=== PATIENT | male | born 1965 | race African-American/Black ===

== ENCOUNTER → 2016-10-01 | Outpatient (CLI) | payer OTHER ==
--- NOTE | ~2016-10-01 | US115 ---
[facility] A Service of [facility] RADIOLOGY TEXT RESULTS PATIENT: ROWAN YBARRA LOCATION: [facility] : 61 UNIT #: [id number] AGE: [address]: Kiel Dumont MD SEX: M ORDER DR: [id number] [facility] [address] [place], [place] [address] [id number] O MR#: [id number] Acc #: [id number] NAME: ROWAN YBARRA : 1965 SEX: M STUDY DATE/TIME: 10/01/2016 14:45 UNIT: [facility] ROOM: STUDY DESCRIPTION: US Scrotum and Contents Attending Physician: Kiel Dumont M.D. Referring Physician: Kiel Dumont M.D. Ordering Physician: Kiel Dumont M.D. Primary Care Physician: Manuel Simon M.D. MEDICAL IMAGING REPORT This report is preliminary unless electronic signature is present EXAM Testicular ultrasound with color flow Doppler 10/01/2016 HISTORY Right testicular pain for 7 months. No known injury. FINDINGS Prescott-scale images of the scrotum were obtained as well as Doppler waveform spectral analysis and color flow Doppler imaging. The right testicle measures 3.5 cm x 4.7 cm x 2.2 cm while the left testicle measured 3.5 cm x 2.1 cm x 4 cm. Both testes are homogeneous in echotexture demonstrate no cystic or solid mass lesions. Color-flow Doppler images show normal blood flow to both testes. Incidental note is made of a 6 mm tunica albuginea cyst on the periphery of the left testicle. There is a 5 mm cyst or spermatocele involving the head of the right epididymis. IMPRESSION 1. The testes are normal bilaterally. No testicular mass is seen. Color-flow Doppler images show normal blood flow to both testes. 2. A 6 mm tunica albuginea cyst left testicle. 3. A 5 mm cyst or spermatocele head of right epididymis. Dictated by... Kranthi Garsia M.D. THIS IS AN ELECTRONICALLY VERIFIED REPORT Kranthi Garsia M.D. at 10/02/2016 9:02 AM KRT/chris TD: 10/01/2016 21:32 [facility] A Service of [facility] & [facility] RADIOLOGY TEXT RESULTS PATIENT: ROWAN YBARRA LOCATION: [facility] #: [id number] : 61 UNIT #: [id number] AGE: [address]: Kiel Dumont MD SEX: M ORDER DR: SKYE #: [id number] MEDICAL IMAGING REPORT Page 1 of 1 COPY
== END | disposition home or self-care (01) ==
LOC: CGUS 14:24
DX: N50.819 Testicular pain, unspecified (principal); N44.1 Cyst of tunica albuginea testis; N50.89 Other specified disorders of the male genital organs
CPT/HCPCS: 76870; 93976

== ENCOUNTER 2016-10-02 15:33 | Emergency (ER) | payer OTHER ==
--- NOTE | ~2016-10-02 | CT2 ---
[facility] A Service of [facility] RADIOLOGY TEXT RESULTS PATIENT: ROWAN YBARRA LOCATION: [facility] : 61 UNIT #: [id number] AGE: [address]: Power Rizzo DO SEX: M ORDER DR: [id number] [facility] [address] [place], [place] [address] [id number] E MR#: [id number] Acc #: [id number] NAME: ROWAN YBARRA : 1965 SEX: M STUDY DATE/TIME: 10/02/2016 20:11 UNIT: [facility] ROOM: STUDY DESCRIPTION: CT Abd and Pelv W Cont Attending Physician: Power Rizzo D.O. Ordering Physician: Power Rizzo D.O. Primary Care Physician: Manuel Simon M.D. MEDICAL IMAGING REPORT This report is preliminary unless electronic signature is present EXAM CT abdomen and pelvis with contrast, 10/02/2016 HISTORY 51-year-old male with right testicular pain for 7 months. COMPARISON None. TECHNIQUE Helical scan performed through the abdomen and pelvis following administration of IV contrast. Coronal and sagittal reformatted images. This CT exam was performed with one or more of the following radiation dose reduction techniques: automatic exposure control, adjustment of mA and/or kV according to patient size, and iterative reconstruction. FINDINGS Visualized lung bases are unremarkable. Diffuse fatty infiltration of the liver. Multiple tiny hypoattenuating lesions throughout the liver which are too small to characterize, but may represent small hepatic cysts. The spleen, pancreas, gallbladder, both adrenal glands, and both kidneys are within normal limits. Abdominal aorta normal in course and caliber without dissection. Small bowel is unremarkable without obstruction. Appendix is normal. Colon unremarkable. No free fluid or free air. Urinary bladder and prostate gland are unremarkable. No free pelvic fluid. No acute bony abnormality. IMPRESSION [facility] A Service of [facility] RADIOLOGY TEXT RESULTS PATIENT: ROWAN YBARRA LOCATION: [facility] : 61 UNIT #: [id number] AGE: [address]: Power Rizzo DO SEX: M ORDER DR: 1. No acute abdominal or pelvic findings. 2. Normal appendix. 3. Hepatic steatosis. Dictated by... Pete Leach M.D. THIS IS AN ELECTRONICALLY VERIFIED REPORT Pete Leach M.D. at 10/03/2016 10:58 PM BG/romero TD: 10/02/2016 22:45 JOB #: [id number] MEDICAL IMAGING REPORT Page 1 of 1 COPY
[2016-10-02 18:50] LABS: BASOPHIL% 0.5 % (0-2.5); EOSINOPHIL# 0.3 X10e3 (0-0.7); EOSINOPHIL% 4.4 % (0.0-7.0); HEMATOCRIT 41.8 % (38.0-50.0); HEMOGLOBIN 14.2 gm/dL (13.0-16.0); LYMPHOCYTE# 2.2 X10e3 (1.0-3.5); LYMPHOCYTE% 37.3 % (17.0-45.0); MEAN CELL VOLUME 92.9 FL (83-96); MEAN CORPUSCULAR HEMOGLOBIN 31.6 PG (28-34); MEAN CORPUSCULAR HGB CONC 34.1 g/dL (30-36); MEAN PLATELET VOLUME 8.5 FL (6.5-11.5); MONOCYTE# 0.5 X10e3 (0-1.0); MONOCYTE% 8.6 % (3.0-12.0); NEUTROPHIL% 49.2 % (40-75); PLATELET COUNT 169 X10e3 (140-420); RED CELL DISTRIBUTION WIDTH 12.7 % (11.0-15.5)
[2016-10-02 18:58] LABS: DIFF IND NO; PARTIAL THROMBOPLASTIN TIME 26.7 SECONDS (23.5-31.3); PROTHROMBIN TIME (PATIENT) 10.3 SECONDS (9.6-11.5)
[2016-10-02 19:01] LABS: ALBUMIN SERUM 4.2 g/dL (3.5-5.0); BILIRUBIN, DIRECT 0.1 mg/dL (0.0-0.2); BILIRUBIN,INDIRECT 0.6 mg/dL (0.0-0.9); BILIRUBIN,TOTAL 0.7 mg/dL (0.2-2.0); BUN/CREATININE RATIO 12.14; CALCIUM SERUM 8.8 mg/dL (8.4-10.2); CREATININE SERUM 1.4 mg/dL (0.6-1.4); POTASSIUM 3.7 mmol/L (3.5-5.1); PROTEIN TOTAL SERUM 6.6 g/dL (6.0-8.3)
[2016-10-02 21:19] LABS: URINE SOURCE CLEAN CATCH
[2016-10-02 21:24] LABS: URINE APPEARANCE CLEAR; URINE BILIRUBIN NEG (NEG); URINE BLOOD NEG (NEG); URINE COLOR YELLOW; URINE GLUCOSE NEG (NEG); URINE KETONE TRACE (NEG); URINE LEUKOCYTE ESTERASE 2+ (NEG); URINE NITRATE NEG (NEG); URINE PH 6.5 (5-8); URINE PROTEIN NEG (NEG); URINE SPECIFIC GRAVITY 1.035 (1.003-1.035)
[2016-10-02 21:26] LABS: CULTURE INDICATED? YES; URINE BACTERIA AUWI NEG (NEGATIVE); URINE SQUAMOUS EPITHELIAL CELL OCC /[HPF]; UWBCS1 AUWI 25-50 (0-5)
[2016-10-05 19:55] LABS: CHLAMYDIA TRACH Not Detected (Not Detected); N GONOR Not Detected (Not Detected)
== END 2016-10-02 22:14 | disposition home or self-care (01) ==
LOC: CED 15:33
PROVIDERS: Emergency Medicine
DX: I10 Essential (primary) hypertension (principal); F17.200 Nicotine dependence, unspecified, uncomplicated; N30.90 Cystitis, unspecified without hematuria
CPT/HCPCS: 36415; 74177; 80048; 80076; 81003; 83690; 85025; 85610; 85730; 87086; 87088; 87186; 87491; 87591; 96374; 96375; 99284; J2270; J2405; Q9967